=== PATIENT | male | born 1975 | race African-American/Black ===

== ENCOUNTER 2019-10-10 08:27 | Inpatient (IN) | payer OTHER, MEDICAID ==
[2019-10-10] VITALS (22 sets, daily range): BP systolic 75–130; BP diastolic 39–117
[~2019-10-10] VITALS: Ht 193 cm; Wt 68.9 kg
[2019-10-10] MEDS ORDERED: SODIUM CHLORIDE 0.9% 1,000 ML IV ONE ×2 (08:55→13:03)
[2019-10-10 09:56] LABS: BASOPHILS % 0.6 % (0.0-2.0); EOSINOPHILS % 0.9 % (0.0-5.0); HEMATOCRIT. 28.1 % (42.0-52.0); HEMOGLOBIN. 8.9 g/dL (14.0-18.0); LYMPHOCYTES % 9.2 % (20.0-50.0); MEAN CORPUSCULAR HEMOGLOBIN 26.8 pg (28.0-32.0); MEAN CORPUSCULAR VOLUME 84.4 fL (80.0-94.0); MEAN PLATELET VOLUME 8.7 fl (7.4-10.4); MONOCYTES % 7.6 % (2.0-8.0); NEUTROPHILS % 81.7 % (40.0-76.0); PLATELET 363 x1000/uL (130-400); RED BLOOD CELL COUNT 3.33 mill/uL (4.7-6.1); RED CELL DISTRIBUTION WIDTH 18.6 % (11.6-14.6)
[2019-10-10 10:00] LABS: CHLORIDE 99 mEq/L (98-107)
[2019-10-10 10:02] LABS: INR 1.2; PROTHROMBIN TIME 12.5 sec (9.6-11.0)
[2019-10-10] MEDS ORDERED: VANCOMYCIN 1 G PREMIX 200 ML IV ONE (10:45)
[2019-10-10] MEDS ORDERED: ONDANSETRON HCL 4MG/2ML INJ IV PRN (14:00)
[2019-10-10] MEDS ORDERED: NOREPINEPHRINE 16 MG in DEXT 5% WATER 484 ML IV PRN ×2 (14:00→15:45)
[2019-10-10] MEDS ORDERED: CLONIDINE 0.1MG TABLET PO PRN (14:00)
[2019-10-10] MEDS ORDERED: DIPHENHYDRAMINE 50MG/ML VIAL IV PRN (14:00)
[2019-10-10] MEDS ORDERED: AZTREONAM 1 G in DEXTROSE 5% WATER 50 ML IV SCH (14:00)
[2019-10-10] MEDS ORDERED: ACETAMINOPHEN 650MG/20.3ML UDC GT PRN (14:00)
[2019-10-10] MEDS ORDERED: DEXTROSE 50% WATER 50ML SYRINGE IV PRN (14:00)
[2019-10-10] MEDS ORDERED: LORAZEPAM 0.5MG TABLET PO PRN (14:00)
[2019-10-10] MEDS ORDERED: ACETAMINOPHEN 325MG TABLET PO PRN (14:00)
[2019-10-10] MEDS ORDERED: DOCUSATE SODIUM 100MG CAPSULE PO PRN (14:00)
[2019-10-10] MEDS ORDERED: GUAIFENESIN 200MG/10ML SUGAR FREE UDC PO PRN (14:00)
[2019-10-10] MEDS ORDERED: MAGNESIUM/ALUMINUM HYDROXIDE/SIMETHICONE 30ML UDC PO PRN (14:00)
[2019-10-10] MEDS ORDERED: ACETAMINOPHEN 650MG SUPP PR PRN (14:00)
[2019-10-10] MEDS ORDERED: IPRATROPIUM/ALBUTEROL 0.5-3(2.5)MG/3ML NEB NEB PRN (14:00)
[2019-10-10 14:36] LABS: BG BASE EXCESS -10.8 mmol/L (-2.0-2.0); BG CARBOXYHEMOGLOBIN 0.9 % (0.5-1.5); BG DEOXYHEMOGLOBIN 4.5 % (0.0-5.0); BG FRACTION INSPIRED OXYGEN 21; BG HCO3 ACT 12.8 mmol/L (22.0-26.0); BG OXYGEN SATURATION 95.5 % (92.0-98.5); BG OXYHEMOGLOBIN 94.6 % (94.0-97.0); BG PCO2 21.6 mmHg (35.0-45.0); BG PH 7.389 (7.350-7.450); BG PO2 98.7 mmHg (75.0-100.0); BG SAMPLE SITE RIGHT BRACHIAL; BG TOTAL HEMOGLOBIN 8.6 g/dL (12.0-18.0); BG VENT MODE ROOM AIR
[2019-10-10 15:21] LABS: CHLORIDE 101 mEq/L (98-107)
[2019-10-10 15:30] LABS: CREATINE KINASE 29 IU/L (39-308)
[2019-10-10] MEDS ORDERED: FAMOTIDINE 20MG/2ML VIAL IV SCH (15:30)
[2019-10-10 15:47] LABS: C REACTIVE PROTEIN QUANT > 190.0 mg/L (0.0-3.0)
[2019-10-10] MEDS ORDERED: VANCOMYCIN 500 MG PREMIX 100 ML IV NR (17:00)
[2019-10-10] MEDS: HYDROCODONE/ACETAMINOPHEN 5/325MG TABLET PO PRN (17:03)
[2019-10-10] MEDS: METRONIDAZOLE 500MG TABLET PO SCH (17:21)
[2019-10-10] MEDS: MIDODRINE HCL 5MG TABLET PO SCH ×2 (17:22→21:40)
[2019-10-10] MEDS: INSULIN LISPRO 100 UNITS/ML SUBCUT SCH ×3 (18:00→21:00)
[2019-10-10] MEDS: AZTREONAM 500MG in DEXTROSE 5% WATER 50ML IV SCH (18:10)
[2019-10-10] MEDS: BLOOD SUGAR DIAGNOSTIC STRIP TEST SCH ×2 (18:16→21:00)
[2019-10-10] MEDS: DEXT 5%/0.9% NACL 1,000 ML IV SCH (18:19)
[2019-10-10 18:23] LABS: HEMATOCRIT 26.8 % (42.0-52.0); HEMOGLOBIN 8.3 g/dL (14.0-18.0)
[2019-10-10] MEDS: PANTOPRAZOLE SODIUM 40 MG/VIAL IV SCH (21:40)
[2019-10-11] VITALS (83 sets, daily range): BP systolic 77–130; BP diastolic 23–76
[2019-10-11] MEDS: METRONIDAZOLE 500MG TABLET PO SCH ×4 (01:04→21:54)
[2019-10-11] MEDS: VANCOMYCIN HCL 1000 MG/20 ML ORAL PO SCH ×4 (02:29→18:07)
[2019-10-11 05:58] LABS: BASOPHILS % 0.6 % (0.0-2.0); EOSINOPHILS % 1.6 % (0.0-5.0); LYMPHOCYTES % 10.2 % (20.0-50.0); MEAN CORPUSCULAR HEMOGLOBIN 26.4 pg (28.0-32.0); MEAN CORPUSCULAR VOLUME 85.5 fL (80.0-94.0); MEAN PLATELET VOLUME 9.2 fl (7.4-10.4); MONOCYTES % 5.8 % (2.0-8.0); NEUTROPHILS % 81.8 % (40.0-76.0); PLATELET 329 x1000/uL (130-400); RED BLOOD CELL COUNT 2.46 mill/uL (4.7-6.1); RED CELL DISTRIBUTION WIDTH 18.3 % (11.6-14.6)
[2019-10-11 06:00] LABS: CHLORIDE 106 mEq/L (98-107)
[2019-10-11 06:06] LABS: HEMOGLOBIN. 6.5 g/dL (14.0-18.0)
[2019-10-11 06:13] LABS: CREATINE KINASE 40 IU/L (39-308); T4 FREE 0.98 ng/dL (0.76-1.46)
[2019-10-11 06:15] LABS: LDL CHOLESTEROL 39 mg/dL (5-100)
[2019-10-11 06:16] LABS: CREATINE KINASE MB FRACTION 4.4 ng/mL (0.5-3.6); HDL CHOLESTEROL 25 mg/dL (40-59)
[2019-10-11 06:25] LABS: TOTAL IRON BINDING CAPACITY 251 ug/dL (250-450)
[2019-10-11 06:31] LABS: HEPATITIS B SURFACE ANTIGEN NEGATIVE
[2019-10-11] MEDS: AZTREONAM 500MG in DEXTROSE 5% WATER 50ML IV SCH ×2 (06:50→17:53)
[2019-10-11] MEDS: MIDODRINE HCL 5MG TABLET PO SCH ×3 (06:50→21:54)
[2019-10-11 07:01] LABS: HEPATITIS A AB IGM NEGATIVE (NEGATIVE)
[2019-10-11] MEDS: INSULIN LISPRO 100 UNITS/ML SUBCUT SCH ×4 (08:20→21:00)
[2019-10-11] MEDS: BLOOD SUGAR DIAGNOSTIC STRIP TEST SCH ×4 (08:34→21:00)
[2019-10-11] MEDS: PANTOPRAZOLE SODIUM 40 MG/VIAL IV SCH ×2 (08:35→17:51)
[2019-10-11] MEDS: HYDROCODONE/ACETAMINOPHEN 5/325MG TABLET PO PRN ×2 (08:35→21:53)
[2019-10-11] MEDS ORDERED: LIDOCAINE HCL 1% 20ML VIAL (Pyxis) INJ ONE ×2 (08:58→09:35)
[2019-10-11] MEDS ORDERED: SODIUM BICARBONATE 4% (2.4MEQ) 5ML VIAL IV ONE (09:35)
[2019-10-11] MEDS ORDERED: VANCOMYCIN 750 MG PREMIX 150 ML IV NR (12:00)
[2019-10-11 13:36] LABS: HEMOGLOBIN 7.4 g/dL (14.0-18.0)
[2019-10-11] MEDS: DEXT 5%/0.9% NACL 1,000 ML IV SCH (17:47)
[2019-10-11] MEDS: IRON SUCROSE COMPLEX 100 MG/5 ML ML IV SCH (17:52)
[2019-10-11 20:19] LABS: HEMATOCRIT 33.7 % (42.0-52.0); HEMOGLOBIN 10.4 g/dL (14.0-18.0)
[2019-10-12] VITALS (67 sets, daily range): BP systolic 88–137; BP diastolic 31–75
[2019-10-12] MEDS: MIDODRINE HCL 5MG TABLET PO SCH ×3 (05:14→22:25)
[2019-10-12] MEDS: METRONIDAZOLE 500MG TABLET PO SCH ×3 (05:14→22:25)
[2019-10-12 05:44] LABS: EOSINOPHILS % 2.3 % (0.0-5.0); HEMATOCRIT. 30.8 % (42.0-52.0); HEMOGLOBIN. 9.7 g/dL (14.0-18.0); LYMPHOCYTES % 10.2 % (20.0-50.0); MEAN CORPUSCULAR HEMOGLOBIN 26.7 pg (28.0-32.0); MEAN CORPUSCULAR VOLUME 84.8 fL (80.0-94.0); MEAN PLATELET VOLUME 8.8 fl (7.4-10.4); MONOCYTES % 7.8 % (2.0-8.0); NEUTROPHILS % 78.7 % (40.0-76.0); PLATELET 361 x1000/uL (130-400); RED BLOOD CELL COUNT 3.63 mill/uL (4.7-6.1); RED CELL DISTRIBUTION WIDTH 17.6 % (11.6-14.6)
[2019-10-12] MEDS: AZTREONAM 500MG in DEXTROSE 5% WATER 50ML IV SCH ×2 (05:53→18:20)
[2019-10-12] MEDS: VANCOMYCIN HCL 1000 MG/20 ML ORAL PO SCH ×4 (05:54→18:01)
[2019-10-12 05:58] LABS: CHLORIDE 106 mEq/L (98-107)
[2019-10-12 06:01] LABS: INR 1.1; PARTIAL THROMBOPLASTIN TIME 37.3 sec (23.4-31.0); PROTHROMBIN TIME 11.9 sec (9.6-11.0)
[2019-10-12 06:35] LABS: VITAMIN B12 SERUM 998 pg/mL (211-911)
[2019-10-12] MEDS: BLOOD SUGAR DIAGNOSTIC STRIP TEST SCH ×4 (07:50→21:15)
[2019-10-12] MEDS: INSULIN LISPRO 100 UNITS/ML SUBCUT SCH ×4 (08:20→21:00)
[2019-10-12] MEDS: IRON SUCROSE COMPLEX 100 MG/5 ML ML IV SCH (09:40)
[2019-10-12] MEDS: PANTOPRAZOLE SODIUM 40 MG/VIAL IV SCH ×2 (09:40→18:00)
[2019-10-12] MEDS ORDERED: NOREPINEPHRINE 8 MG in DEXTROSE 5% WATER 250 ML IV PRN (12:15)
[2019-10-12] MEDS: DEXT 5%/0.9% NACL 1,000 ML IV SCH (14:00)
[2019-10-12] MEDS ORDERED: ALBUMIN HUMAN 12.5GM/50ML (25%) IV SCH (14:45)
[2019-10-12] MEDS ORDERED: FENTANYL CITRATE/PF 50MCG/ML 2ML VIAL ONE (15:02)
[2019-10-12] MEDS ORDERED: MIDAZOLAM HCL 5 MG/5 ML VIAL ONE (15:02)
[2019-10-12] MEDS: FLUCONAZOLE 100MG TABLET PO SCH (15:13)
[2019-10-12] MEDS ORDERED: MIDAZOLAM HCL 5 MG/5 ML VIAL IV PRN (16:03)
[2019-10-12] MEDS: SUCRALFATE 1 G/10 ML UDC PO SCH ×2 (17:58→21:04)
[2019-10-12] MEDS ORDERED: EPOETIN ALFA 10000UNITS/ML VIAL SUBCUT SCH (21:00)
[2019-10-13] VITALS (69 sets, daily range): BP systolic 80–135; BP diastolic 43–87
[2019-10-13] MEDS: VANCOMYCIN HCL 1000 MG/20 ML ORAL PO SCH ×5 (00:08→23:33)
[2019-10-13 05:24] LABS: BASOPHILS % 1.1 % (0.0-2.0); EOSINOPHILS % 2.8 % (0.0-5.0); HEMATOCRIT. 28.5 % (42.0-52.0); LYMPHOCYTES % 8.8 % (20.0-50.0); MEAN CORPUSCULAR HEMOGLOBIN 26.8 pg (28.0-32.0); MEAN PLATELET VOLUME 8.7 fl (7.4-10.4); MONOCYTES % 5.6 % (2.0-8.0); NEUTROPHILS % 81.7 % (40.0-76.0); PLATELET 351 x1000/uL (130-400); RED BLOOD CELL COUNT 3.36 mill/uL (4.7-6.1); RED CELL DISTRIBUTION WIDTH 18.1 % (11.6-14.6)
[2019-10-13 05:38] LABS: PHOSPHORUS 6.7 mg/dL (2.5-4.9)
[2019-10-13] MEDS: AZTREONAM 500MG in DEXTROSE 5% WATER 50ML IV SCH ×2 (05:44→18:46)
[2019-10-13] MEDS: MIDODRINE HCL 5MG TABLET PO SCH ×4 (05:48→21:21)
[2019-10-13] MEDS: METRONIDAZOLE 500MG TABLET PO SCH ×3 (05:48→22:00)
[2019-10-13] MEDS: BLOOD SUGAR DIAGNOSTIC STRIP TEST SCH ×4 (07:48→21:07)
[2019-10-13] MEDS: SUCRALFATE 1 G/10 ML UDC PO SCH ×4 (07:48→21:07)
[2019-10-13] MEDS: INSULIN LISPRO 100 UNITS/ML SUBCUT SCH ×4 (07:48→21:00)
[2019-10-13] MEDS: PANTOPRAZOLE SODIUM 40 MG/VIAL IV SCH ×2 (07:48→18:45)
[2019-10-13] MEDS: FLUCONAZOLE 100MG TABLET PO SCH (07:48)
[2019-10-13] MEDS: IRON SUCROSE COMPLEX 100 MG/5 ML ML IV SCH (07:48)
[2019-10-13] MEDS ORDERED: IMOD MT (12:49)
[2019-10-13] MEDS ORDERED: MIDO5TAB4 MT (12:49)
[2019-10-13] MEDS ORDERED: APIX5TAB MT (12:49)
[2019-10-13] MEDS ORDERED: THIA100T72 MT (12:49)
[2019-10-13] MEDS ORDERED: MIRT15TA6 MT (12:49)
[2019-10-13] MEDS ORDERED: BUPR-43 MT (12:49)
[2019-10-13] MEDS ORDERED: LEVO25TA2 MT (12:49)
[2019-10-13] MEDS ORDERED: SEVE800T8 MT (12:49)
[2019-10-13] MEDS ORDERED: LIPA1CAP18 MT (12:50)
[2019-10-13] MEDS: DEXT 5%/0.9% NACL 1,000 ML IV SCH (12:55)
[2019-10-13] MEDS: SEVELAMER CARBONATE 800 MG TABLET PO SCH ×2 (13:20→18:46)
[2019-10-13] MEDS ORDERED: MEDICATION NOT ON FORMULARY EA (Bupropion Hcl (Bupropion Xl) 1 TAB) MT SCH (13:45)
[2019-10-13] MEDS ORDERED: SEVELAMER CARBONATE 800 MG TABLET PO SCH (14:00)
[2019-10-13] MEDS ORDERED: ALBUMIN HUMAN 12.5GM/50ML (25%) IV NR (15:00)
[2019-10-13] MEDS: BUPROPION HCL 150MG TABLET XL 24HR PO SCH (18:45)
[2019-10-13] MEDS ORDERED: VANCOMYCIN 500 MG PREMIX 100 ML IV SCH (21:00)
[2019-10-13] MEDS: MIRTAZAPINE 15MG TABLET PO SCH (21:07)
[2019-10-14] VITALS (49 sets, daily range): BP systolic 92–140; BP diastolic 41–88
[2019-10-14 06:26] LABS: BASOPHILS % 1.1 % (0.0-2.0); EOSINOPHILS % 3.2 % (0.0-5.0); HEMATOCRIT. 29.2 % (42.0-52.0); HEMOGLOBIN. 9.2 g/dL (14.0-18.0); LYMPHOCYTES % 12.6 % (20.0-50.0); MEAN CORPUSCULAR HEMOGLOBIN 27.1 pg (28.0-32.0); MEAN CORPUSCULAR VOLUME 85.4 fL (80.0-94.0); MEAN PLATELET VOLUME 8.9 fl (7.4-10.4); MONOCYTES % 8.8 % (2.0-8.0); NEUTROPHILS % 74.3 % (40.0-76.0); PLATELET 350 x1000/uL (130-400); RED BLOOD CELL COUNT 3.41 mill/uL (4.7-6.1); RED CELL DISTRIBUTION WIDTH 18.3 % (11.6-14.6)
[2019-10-14] MEDS: VANCOMYCIN HCL 1000 MG/20 ML ORAL PO SCH ×4 (06:40→23:18)
[2019-10-14] MEDS: AZTREONAM 500MG in DEXTROSE 5% WATER 50ML IV SCH ×2 (06:40→17:30)
[2019-10-14] MEDS: MIDODRINE HCL 5MG TABLET PO SCH ×3 (06:40→22:10)
[2019-10-14] MEDS: METRONIDAZOLE 500MG TABLET PO SCH ×3 (06:40→22:10)
[2019-10-14] MEDS: INSULIN LISPRO 100 UNITS/ML SUBCUT SCH ×4 (08:20→21:00)
[2019-10-14] MEDS: SEVELAMER CARBONATE 800 MG TABLET PO SCH ×3 (08:27→17:30)
[2019-10-14] MEDS: PANTOPRAZOLE SODIUM 40 MG/VIAL IV SCH ×2 (08:27→17:30)
[2019-10-14] MEDS: BUPROPION HCL 150MG TABLET XL 24HR PO SCH (08:27)
[2019-10-14] MEDS: IRON SUCROSE COMPLEX 100 MG/5 ML ML IV SCH (08:27)
[2019-10-14] MEDS: SUCRALFATE 1 G/10 ML UDC PO SCH ×4 (08:27→22:09)
[2019-10-14] MEDS: LEVOTHYROXINE SODIUM 25MCG TABLET PO SCH (08:27)
[2019-10-14] MEDS: FLUCONAZOLE 100MG TABLET PO SCH (08:28)
[2019-10-14] MEDS: BLOOD SUGAR DIAGNOSTIC STRIP TEST SCH ×4 (08:28→21:00)
[2019-10-14] MEDS: THIAMINE HCL 100MG TABLET PO SCH (08:28)
[2019-10-14] MEDS ORDERED: EPOETIN ALFA 4000UNITS/ML VIAL SUBCUT SCH (21:00)
[2019-10-14] MEDS ORDERED: EPOETIN ALFA 10000UNITS/ML VIAL SUBCUT SCH (21:00)
[2019-10-14] MEDS: MIRTAZAPINE 15MG TABLET PO SCH (22:10)
[2019-10-15] VITALS (32 sets, daily range): BP systolic 90–133; BP diastolic 49–88
[2019-10-15 05:43] LABS: BASOPHILS % 1.1 % (0.0-2.0); EOSINOPHILS % 2.6 % (0.0-5.0); HEMATOCRIT. 30.9 % (42.0-52.0); HEMOGLOBIN. 9.7 g/dL (14.0-18.0); LYMPHOCYTES % 11.4 % (20.0-50.0); MEAN CORPUSCULAR HEMOGLOBIN 26.7 pg (28.0-32.0); MEAN CORPUSCULAR VOLUME 85.7 fL (80.0-94.0); MEAN PLATELET VOLUME 8.7 fl (7.4-10.4); MONOCYTES % 6.4 % (2.0-8.0); NEUTROPHILS % 78.5 % (40.0-76.0); PLATELET 385 x1000/uL (130-400); RED BLOOD CELL COUNT 3.61 mill/uL (4.7-6.1); RED CELL DISTRIBUTION WIDTH 18.5 % (11.6-14.6)
[2019-10-15] MEDS: METRONIDAZOLE 500MG TABLET PO SCH ×2 (06:15→12:25)
[2019-10-15] MEDS: VANCOMYCIN HCL 1000 MG/20 ML ORAL PO SCH ×2 (06:15→12:25)
[2019-10-15] MEDS: AZTREONAM 500MG in DEXTROSE 5% WATER 50ML IV SCH ×2 (06:15→18:05)
[2019-10-15] MEDS: MIDODRINE HCL 5MG TABLET PO SCH ×3 (06:15→22:09)
[2019-10-15] MEDS: BLOOD SUGAR DIAGNOSTIC STRIP TEST SCH ×4 (07:50→21:41)
[2019-10-15] MEDS: INSULIN LISPRO 100 UNITS/ML SUBCUT SCH ×4 (08:20→21:00)
[2019-10-15] MEDS: FLUCONAZOLE 100MG TABLET PO SCH (08:51)
[2019-10-15] MEDS: THIAMINE HCL 100MG TABLET PO SCH (08:51)
[2019-10-15] MEDS: SEVELAMER CARBONATE 800 MG TABLET PO SCH ×3 (08:51→17:37)
[2019-10-15] MEDS: PANTOPRAZOLE SODIUM 40 MG/VIAL IV SCH ×2 (08:52→17:37)
[2019-10-15] MEDS: BUPROPION HCL 150MG TABLET XL 24HR PO SCH (08:52)
[2019-10-15] MEDS: SUCRALFATE 1 G/10 ML UDC PO SCH ×4 (08:52→21:28)
[2019-10-15] MEDS: IRON SUCROSE COMPLEX 100 MG/5 ML ML IV SCH (08:52)
[2019-10-15] MEDS: LEVOTHYROXINE SODIUM 25MCG TABLET PO SCH (08:52)
[2019-10-15] MEDS ORDERED: VANCOMYCIN 500 MG PREMIX 100 ML IV SCH (20:00)
[2019-10-15] MEDS: MIRTAZAPINE 15MG TABLET PO SCH (21:28)
[2019-10-16] VITALS (11 sets, daily range): BP systolic 95–141; BP diastolic 52–77
[2019-10-16] MEDS: METRONIDAZOLE 500MG TABLET PO SCH ×4 (00:04→21:18)
[2019-10-16] MEDS: SUCRALFATE 1 G/10 ML UDC PO SCH ×4 (06:24→20:54)
[2019-10-16] MEDS: MIDODRINE HCL 5MG TABLET PO SCH ×3 (06:25→21:19)
[2019-10-16] MEDS: LEVOTHYROXINE SODIUM 25MCG TABLET PO SCH (06:25)
[2019-10-16] MEDS: BLOOD SUGAR DIAGNOSTIC STRIP TEST SCH ×4 (06:26→20:54)
[2019-10-16 06:34] LABS: BASOPHILS % 1.2 % (0.0-2.0); EOSINOPHILS % 2.3 % (0.0-5.0); HEMATOCRIT. 30.2 % (42.0-52.0); HEMOGLOBIN. 9.4 g/dL (14.0-18.0); LYMPHOCYTES % 14.8 % (20.0-50.0); MEAN CORPUSCULAR HEMOGLOBIN 26.7 pg (28.0-32.0); MEAN CORPUSCULAR VOLUME 85.8 fL (80.0-94.0); MEAN PLATELET VOLUME 8.9 fl (7.4-10.4); MONOCYTES % 9.9 % (2.0-8.0); NEUTROPHILS % 71.8 % (40.0-76.0); PLATELET 376 x1000/uL (130-400); RED BLOOD CELL COUNT 3.52 mill/uL (4.7-6.1); RED CELL DISTRIBUTION WIDTH 18.2 % (11.6-14.6)
[2019-10-16] MEDS: INSULIN LISPRO 100 UNITS/ML SUBCUT SCH ×4 (07:20→21:00)
[2019-10-16] MEDS: SEVELAMER CARBONATE 800 MG TABLET PO SCH ×3 (09:39→18:29)
[2019-10-16] MEDS: PANTOPRAZOLE SODIUM 40 MG/VIAL IV SCH ×2 (09:39→18:29)
[2019-10-16] MEDS: THIAMINE HCL 100MG TABLET PO SCH (09:39)
[2019-10-16] MEDS: FLUCONAZOLE 100MG TABLET PO SCH (09:39)
[2019-10-16] MEDS: BUPROPION HCL 150MG TABLET XL 24HR PO SCH (12:36)
[2019-10-16] MEDS ORDERED: CEPHALEXIN 250MG CAPSULE PO NR (15:00)
[2019-10-16] MEDS ORDERED: MIDO10TA MT (15:17)
[2019-10-16] MEDS ORDERED: SUCR1TAB30 MT (15:17)
[2019-10-16] MEDS ORDERED: PANT40SU MT (15:17)
[2019-10-16] MEDS: AZTREONAM 500 MG in DEXTROSE 5% WATER 50 ML IV SCH ×2 (18:29→21:17)
[2019-10-16] MEDS: MIRTAZAPINE 15MG TABLET PO SCH (20:54)
[2019-10-17] VITALS (12 sets, daily range): BP systolic 94–123; BP diastolic 49–74
[2019-10-17] MEDS: MIDODRINE HCL 5MG TABLET PO SCH ×2 (06:00→14:23)
[2019-10-17] MEDS: LEVOTHYROXINE SODIUM 25MCG TABLET PO SCH (06:08)
[2019-10-17] MEDS: SUCRALFATE 1 G/10 ML UDC PO SCH ×3 (06:08→16:04)
[2019-10-17] MEDS: METRONIDAZOLE 500MG TABLET PO SCH ×2 (06:08→14:23)
[2019-10-17] MEDS: AZTREONAM 500 MG in DEXTROSE 5% WATER 50 ML IV SCH ×2 (06:09→13:33)
[2019-10-17] MEDS: BLOOD SUGAR DIAGNOSTIC STRIP TEST SCH ×3 (06:09→16:04)
[2019-10-17] MEDS: INSULIN LISPRO 100 UNITS/ML SUBCUT SCH ×3 (07:20→16:04)
[2019-10-17] MEDS: SEVELAMER CARBONATE 800 MG TABLET PO SCH ×3 (07:20→14:37)
[2019-10-17 07:35] LABS: EOSINOPHILS % 2.2 % (0.0-5.0); HEMATOCRIT. 28.6 % (42.0-52.0); HEMOGLOBIN. 9.1 g/dL (14.0-18.0); MEAN CORPUSCULAR VOLUME 85.3 fL (80.0-94.0); MEAN PLATELET VOLUME 8.6 fl (7.4-10.4); MONOCYTES % 9.6 % (2.0-8.0); NEUTROPHILS % 73.2 % (40.0-76.0); PLATELET 486 x1000/uL (130-400); RED BLOOD CELL COUNT 3.36 mill/uL (4.7-6.1)
[2019-10-17] MEDS: BUPROPION HCL 150MG TABLET XL 24HR PO SCH (10:01)
[2019-10-17] MEDS: FLUCONAZOLE 100MG TABLET PO SCH (10:01)
[2019-10-17] MEDS: THIAMINE HCL 100MG TABLET PO SCH (10:02)
[2019-10-17] MEDS: PANTOPRAZOLE SODIUM 40 MG/VIAL IV SCH ×2 (10:02→16:04)
[2019-10-17] MEDS ORDERED: VANCOMYCIN 500 MG PREMIX 100 ML IV NR (15:00)
== END 2019-10-17 19:00 | disposition home health service (06) | DRG 871 ==
LOC: ER 08:27 → 5EST 13:04 → SUPCPDRO 13:49 → ENRESERV 13:56 → CVICU 18:17 → 3WST 10-15 13:03
PROVIDERS: ADMIT Internal Medicine; ATTEND Internal Medicine
PROC: 05HY33Z Insertion of Infusion Device into Upper Vein, Percutaneous Approach (ICD-10-PCS; 2019-10-11)
PROC: B54MZZA Ultrasonography of Right Upper Extremity Veins, Guidance (ICD-10-PCS; 2019-10-11)
PROC: 30233N1 Transfusion of Nonautologous Red Blood Cells into Peripheral Vein, Percutaneous Approach (ICD-10-PCS; 2019-10-11)
PROC: 0DB68ZX Excision of Stomach, Via Natural or Artificial Opening Endoscopic, Diagnostic (ICD-10-PCS; 2019-10-12)
PROC: 5A1D70Z Performance of Urinary Filtration, Intermittent, Less than 6 Hours Per Day (ICD-10-PCS; principal; 2019-10-13)
PROC: 5A1D70Z Performance of Urinary Filtration, Intermittent, Less than 6 Hours Per Day (ICD-10-PCS; 2019-10-15)
PROC: 5A1D70Z Performance of Urinary Filtration, Intermittent, Less than 6 Hours Per Day (ICD-10-PCS; 2019-10-17)
DX: A41.9 Sepsis, unspecified organism (principal); L89.154 Pressure ulcer of sacral region, stage 4; N18.6 End stage renal disease; R65.21 Severe sepsis with septic shock; K29.61 Other gastritis with bleeding; K25.4 Chronic or unspecified gastric ulcer with hemorrhage; J18.9 Pneumonia, unspecified organism; E11.52 Type 2 diabetes mellitus with diabetic peripheral angiopathy with gangrene; E87.1 Hypo-osmolality and hyponatremia; I12.0 Hypertensive chronic kidney disease with stage 5 chronic kidney disease or end stage renal disease; E87.2 Acidosis; M46.28 Osteomyelitis of vertebra, sacral and sacrococcygeal region; L03.115 Cellulitis of right lower limb; M86.8X7 Other osteomyelitis, ankle and foot; I70.261 Atherosclerosis of native arteries of extremities with gangrene, right leg; M24.562 Contracture, left knee; I44.0 Atrioventricular block, first degree; I08.0 Rheumatic disorders of both mitral and aortic valves; I48.91 Unspecified atrial fibrillation; K80.20 Calculus of gallbladder without cholecystitis without obstruction; E88.09 Other disorders of plasma-protein metabolism, not elsewhere classified; D64.9 Anemia, unspecified; D50.0 Iron deficiency anemia secondary to blood loss (chronic); E11.22 Type 2 diabetes mellitus with diabetic chronic kidney disease; E21.3 Hyperparathyroidism, unspecified; E66.9 Obesity, unspecified; D63.8 Anemia in other chronic diseases classified elsewhere; S93.331A Other subluxation of right foot, initial encounter; N48.89 Other specified disorders of penis; E11.65 Type 2 diabetes mellitus with hyperglycemia; R79.89 Other specified abnormal findings of blood chemistry; X58.XXXA Exposure to other specified factors, initial encounter; T87.89 Other complications of amputation stump; Y83.5 Amputation of limb(s) as the cause of abnormal reaction of the patient, or of later complication, without mention of misadventure at the time of the procedure; Y93.89 Activity, other specified; Y92.89 Other specified places as the place of occurrence of the external cause; Y99.8 Other external cause status; Z99.2 Dependence on renal dialysis; Z89.512 Acquired absence of left leg below knee; Z86.73 Personal history of transient ischemic attack (TIA), and cerebral infarction without residual deficits; Z88.0 Allergy status to penicillin; Z22.322 Carrier or suspected carrier of Methicillin resistant Staphylococcus aureus; Z88.1 Allergy status to other antibiotic agents
CPT/HCPCS: 36415; 36600; 71045; 73630; 73721; 74176; 76770; 76937; 80048; 80053; 80061; 80202; 82270; 82375; 82550; 82553; 82607; 82728; 82805; 82947; 82962; 83036; 83540; 83550; 83615; 83735; 83970; 84100; 84145; 84439; 84443; 84484; 85014; 85018; 85025; 85379; 85651; 86140; 86705; 86706; 86709; 86803; 86850; 86900; 86920; 87015; 87045; 87340; 87427; 87449; 87493; 88305; 88312; 88313; 89055; 93005; 93306; 93308; 93923; 93970; 96365; 99285; C1725; C9113; J0885; J2250; J2405; J3010; J3370; J3490; J7030; J7060; P9016; P9047

== ENCOUNTER 2020-03-02 15:29 | Emergency (ER) | payer MEDICARE, MEDICAID ==
[~2020-03-02] VITALS: Ht 188 cm; Wt 118.0 kg
[~2020-03-02 15:29] MED LIST: BUPR-43 MT; IMOD MT; LEVO25TA2 MT; LIPA1CAP18 MT; MIDO10TA MT; MIRT15TA6 MT; PANT40SU MT; SEVE800T8 MT; SUCR1TAB30 MT; THIA100T72 MT
[2020-03-02 17:46] LABS: BASOPHILS % 0.9 % (0.0-2.0); EOSINOPHILS % 0.4 % (0.0-5.0); HEMATOCRIT. 25.9 % (42.0-52.0); HEMOGLOBIN. 7.8 g/dL (14.0-18.0); LYMPHOCYTES % 11.4 % (20.0-50.0); MEAN CORPUSCULAR HEMOGLOBIN 24.8 pg (28.0-32.0); MEAN CORPUSCULAR VOLUME 81.8 fL (80.0-94.0); MEAN PLATELET VOLUME 9.3 fl (7.4-10.4); MONOCYTES % 6.9 % (2.0-8.0); NEUTROPHILS % 80.4 % (40.0-76.0); PLATELET 354 x1000/uL (130-400); RED BLOOD CELL COUNT 3.16 mill/uL (4.7-6.1); RED CELL DISTRIBUTION WIDTH 19.7 % (11.6-14.6)
[2020-03-02 17:54] LABS: CHLORIDE 100 mEq/L (98-107)
[2020-03-02 20:13] VITALS: BP 109/47
[2020-03-02] MEDS ORDERED: ASPIRIN 325MG TABLET PO ONE (20:15)
== END 2020-03-02 22:24 | disposition short-term general hospital (02) ==
LOC: ER 15:46
DX: T82.49XA Other complication of vascular dialysis catheter, initial encounter (principal); R55 Syncope and collapse; E78.00 Pure hypercholesterolemia, unspecified; I48.91 Unspecified atrial fibrillation; E11.22 Type 2 diabetes mellitus with diabetic chronic kidney disease; I13.2 Hypertensive heart and chronic kidney disease with heart failure and with stage 5 chronic kidney disease, or end stage renal disease; I50.9 Heart failure, unspecified; N18.6 End stage renal disease; Z89.612 Acquired absence of left leg above knee; Z89.611 Acquired absence of right leg above knee; Z88.0 Allergy status to penicillin; Z99.2 Dependence on renal dialysis; Z79.01 Long term (current) use of anticoagulants; Y84.1 Kidney dialysis as the cause of abnormal reaction of the patient, or of later complication, without mention of misadventure at the time of the procedure; Y92.89 Other specified places as the place of occurrence of the external cause
CPT/HCPCS: 36415; 71045; 80053; 83880; 84484; 85025; 86850; 86900; 93005; 99285